=== PATIENT | male | born 1950 | race Caucasian/White ===

== ENCOUNTER 2018-06-16 20:22 | Emergency (ER) | payer OTHER ==
[~2018-06-16] VITALS: Ht 165.1 cm; Wt 68.2 kg
[2018-06-16 20:26] VITALS: Ht 165.1 cm; Wt 68.2 kg
[2018-06-16] MEDS ORDERED: VOLTAREN75 MG PO (23:13)
[2018-06-16 23:48] VITALS: BP 139/73
== END 2018-06-16 23:49 | disposition home or self-care (01) ==
LOC: D.ER 20:22
DX: M25.562 Pain in left knee (principal); M25.561 Pain in right knee; M79.671 Pain in right foot; F17.200 Nicotine dependence, unspecified, uncomplicated